=== PATIENT | male | born 1985 | race American Indian/Alaskan Native ===

== ENCOUNTER 2022-06-07 01:58 | Emergency (ER) | payer SELFPAY ==
[2022-06-07] MEDS ORDERED: SODIUM CHLORIDE 0.9% 1000 ML 1,000 ML IV ONE (02:15)
[2022-06-07] MEDS ORDERED: propofoL 200 MG/20 ML VIAL IV ONE (02:30)
[2022-06-07] MEDS ORDERED: MORPHINE 4 MG/1 ML INJ IV ONE (02:39)
--- NOTE | 2022-06-07 02:45 | XRay Report ---
LEFT SHOULDER 3 VIEW(S) INDICATION / CLINICAL INFORMATION: SHOULDER INJURY. COMPARISON: None available. FINDINGS: Anterior dislocation left glenohumeral joint. IMPRESSION: 1. Anterior dislocation left glenohumeral joint. Signer Name: Kwabena Lomeli II, MD Signed: 06/07/2022 2:41 AM Workstation Name: [id number]
--- NOTE | 2022-06-07 04:02 | Emergency Department Report ---
ED Upper Extremity Inj HPI - General Chief Complaint: Shoulder Injury Stated Complaint: LOW BP/DISLOCATED LEFT SHOULDER Time Seen by Provider: 06/07/22 02:14 Source: patient Mode of arrival: Ambulatory Limitations: No Limitations - History of Present Illness Initial Comments: Patient is a 37-year-old male presenting to ED with complaint of left shoulder injury. States he was running and fell landing on his left shoulder. Noted to be hypotensive in triage however normotensive on arrival to exam room. - Related Data Allergies Allergy/AdvReac Type Severity Reaction Status Date / Time No Known Allergies Allergy Unverified 06/07/22 02:10 ED Review of Systems ROS: Stated complaint: LOW BP/DISLOCATED LEFT SHOULDER Other details as noted in HPI Constitutional: denies: chills, fever Respiratory: denies: cough, shortness of breath, wheezing Cardiovascular: denies: chest pain, palpitations Gastrointestinal: denies: abdominal pain, nausea, diarrhea Genitourinary: denies: urgency, dysuria Musculoskeletal: denies: back pain, joint swelling, arthralgia Skin: denies: rash, lesions Neurological: denies: headache, weakness, paresthesias Psychiatric: denies: anxiety, depression ED Past Medical Hx - Past Medical History Previous Medical History?: Yes Hx Diabetes: Yes - Surgical History Past Surgical History?: No - Social History Smoking Status: Current Some Day Smoker Substance Use Type: Alcohol ED Physical Exam - General Limitations: No Limitations General appearance: alert, in no apparent distress - Head Head exam: Present: atraumatic, normocephalic - Neck Neck exam: Present: normal inspection. Absent: tenderness - Respiratory Respiratory exam: Present: normal lung sounds bilaterally. Absent: respiratory distress - Cardiovascular Cardiovascular Exam: Present: regular rate, normal rhythm - GI/Abdominal GI/Abdominal exam: Present: soft. Absent: distended, tenderness - Rectal Rectal exam: Present: deferred - Extremities Exam Extremities exam: Present: other (Contour deformity of left shoulder with limited range of motion) - Neurological Exam Neurological exam: Present: alert, oriented X3 - Psychiatric Psychiatric exam: Present: normal affect, normal mood - Skin Skin exam: Present: warm, dry, abrasion (Abrasion to left elbow) ED Course Vital Signs 06/07/22 06/07/22 06/07/22 02:06 02:36 03:49 Temperature 98.5 F Pulse Rate 85 87 Pulse Rate [ 82 Intra-Procedure ] Respiratory 16 18 Rate Respiratory 26 H Rate [Intra- Procedure] Blood Pressure 72/28 Blood Pressure 177/105 [Intra- Procedure] Blood Pressure 72/28 152/87 [Right] O2 Sat by Pulse 96 98 Oximetry O2 Sat by Pulse 100 Oximetry [ Intra-Procedure ] 06/07/22 06/07/22 06/07/22 03:57 03:59 04:06 Temperature 87 F L Pulse Rate 88 94 H Pulse Rate [ 83 Intra-Procedure ] Respiratory 16 16 Rate Respiratory 14 Rate [Intra- Procedure] Blood Pressure Blood Pressure 144/100 [Intra- Procedure] Blood Pressure 122/88 [Right] O2 Sat by Pulse 99 Oximetry O2 Sat by Pulse 100 Oximetry [ Intra-Procedure ] - Moderate Sedation Indications: fracture/dislocation redu ASA Class: I Mallampati Airway Score: 1 Preparation: school bus monitor applied, pulse oximeter, supplemental O2 applied, reversal agents at bedside, suction/airway equipment at bedside, IV secured IV Propofol Dose (mgs): 100 Complications: none Patient Tolerated Procedure: well Additional Comments: Total time of procedure 15 minutes. - Orthopedic Joint Reduction Joint #1 Consent Obtained: written consent Time Out Performed: Yes Side: left Joint Reduction Location: shoulder Analgesia: moderate sedation Shoulder Technique Used (if applicable): traction/counter-traction Technique Used: traction/counter-traction Post-Reduction Neuro Exam: intact Post-Reduction Vascular Exam: intact Post Reduction X-Ray Obtained: Yes Post Reduction X-Ray Results: reduced Splint Applied: No Patient Tolerated Procedure: well ED Medical Decision Making - Medical Decision Making X-ray reveals anterior dislocation of the left shoulder. Shoulder reduced successfully under procedural sedation. Confirmed by x-ray. Patient placed in a sling and monitored in the emergency department until stable for discharge. Critical care attestation.: If time is entered above; I have spent that time in minutes in the direct care of this critically ill patient, excluding procedure time. ED Disposition Clinical Impression: Closed anterior dislocation of left shoulder Disposition: 01 HOME / SELF CARE / HOMELESS Is pt being admited?: No Condition: Stable Instructions: Shoulder Dislocation Additional Instructions: Please follow-up with your regular doctor as needed. You may remove the sling when you feel comfortable. Please contact us/return if you have any new symptoms or concerns. Time of Disposition: 04:43
--- NOTE | 2022-06-07 04:29 | XRay Report ---
LEFT SHOULDER 3 VIEW(S) INDICATION / CLINICAL INFORMATION: Post reduction. COMPARISON: Left shoulder x-ray 06/07/2022; 0229 hours FINDINGS: Interval reduction of the left glenohumeral joint is demonstrated. No fractures are identified. IMPRESSION: 1. Interval reduction of anterior dislocation left shoulder. Signer Name: Kwabena Lomeli II, MD Signed: 06/07/2022 4:25 AM Workstation Name: [id number]
[2022-06-07 05:16] VITALS: BP 153/93
== END 2022-06-07 05:14 | disposition home or self-care (01) ==
LOC: ED 01:58
DX: S43.005A Unspecified dislocation of left shoulder joint, initial encounter (principal); E11.9 Type 2 diabetes mellitus without complications; F17.290 Nicotine dependence, other tobacco product, uncomplicated; W01.0XXA Fall on same level from slipping, tripping and stumbling without subsequent striking against object, initial encounter; Y93.89 Activity, other specified; Y92.89 Other specified places as the place of occurrence of the external cause; Y99.8 Other external cause status
CPT/HCPCS: 23650; 73030; 82962; 96361; 96374; 99284; J2270; J2704; J7030